=== PATIENT | male | born 1975 | race Caucasian/White ===

== ENCOUNTER 2019-03-10 15:51 | Emergency (ER) | payer BC ==
[2019-03-10 17:01] VITALS: BP 129/83
[2019-03-10] MEDS ORDERED: DOXYCYCLINE HYCLATE 100 MG TABLET PO ONE (18:40)
[2019-03-10] MEDS ORDERED: DIPH/PERTUSS(ACELL)/TETANUS VAC/PF 0.5 ML SYR (>=10YO) IM ONE (18:41)
--- NOTE | 2019-03-10 19:24 | ER Document Report ---
HPI - HPI Patient complains to provider of: Right hand injury Time Seen by Provider: 03/10/19 18:06 Pain Level: 4 Context: Patient is a 43-year-old male presents the emergency department for a puncture wound to his right hand. Patient states he was cleaning his boat when he accidentally slid his hand and sustained a puncture wound between his right palm and index finger into the web of his hand. Patient states the metal piece was approximately 2 inches. States he does not feel as though the entire thing punctured him. Patient states this is a salt water but he was cleaning. Patient states he is unsure when his last tetanus immunization. Patient states history of hypertension, hyperlipidemia Patient states he takes losartan Denying any allergies - CONSTITUTIONAL Constitutional: DENIES: Fever, Chills - MUSCULOSKELETAL Musculoskeletal: REPORTS: Extremity pain - R hand Past Medical History - General Information source: Patient - Social History Smoking Status: Unknown if Ever Smoked Family History: Reviewed & Not Pertinent Patient has suicidal ideation: No Patient has homicidal ideation: No Renal/ Medical History: Denies: Hx Peritoneal Dialysis Vertical Provider Document - CONSTITUTIONAL Agree With Documented VS: Yes Notes: GENERAL: Alert, interacts well. No acute distress. HEAD: Normocephalic, atraumatic. EYES: Pupils equal, round, and reactive to light. Extraocular movements intact. ENT: Oral mucosa moist, tongue midline. NECK: Full range of motion. Supple. Trachea midline. LUNGS: Clear to auscultation bilaterally, no wheezes, rales, or rhonchi. No respiratory distress. HEART: Regular rate and rhythm. No murmur ABDOMEN: Soft, non-tender. Non-distended. Bowel sounds present in all 4 quadrants. EXTREMITIES: Moves all 4 extremities spontaneously. No edema, normal radial and dorsalis pedis pulses bilaterally. No cyanosis. BACK: no cervical, thoracic, lumbar midline tenderness. No saddle anesthesia, normal distal neurovascular exam. NEUROLOGICAL: Alert and oriented x3. Normal speech. cranial nerves II through XII grossly intact PSYCH: Normal affect, normal mood. SKIN: Warm, dry, normal turgor. 1 cm laceration and puncture wound noted in between the web of patient's right index finger and thumb. - INFECTION CONTROL TRAVEL OUTSIDE OF THE [place] IN LAST 30 DAYS: No Course - Re-evaluation Re-evalutation: 07/15/19 19:43 Hand X-Ray 03/10/19 18:40 IMPRESSION: NO FRACTURE.No radiopaque foreign body. Patient's right hand was soaked in Betadine. And then washed thoroughly with Shur-Clens. Discussed with patient higher risk of infection due to it being a puncture and also potentially exposed to salt water. Discussed use of doxycycline continued wound care with delayed closure. At this time will discharge with return precautions and follow-up recommendations. Verbal discharge instructions given a the bedside and opportunity for questions given. Medication warnings reviewed. Patient is in agreement with this plan and has verbalized understanding of return precautions and the need for primary care follow-up in the next 24-72 hours. This medical record was dictated with voice recognizing software. There may be grammatical, syntax errors that are unintended. - Vital Signs Vital signs: Temp Pulse Resp BP Pulse Ox 98.0 F 77 20 129/83 H 96 03/10/19 16:59 03/10/19 16:59 03/10/19 16:59 03/10/19 16:59 03/10/19 16:59 Discharge - Discharge Clinical Impression: Puncture wound Condition: Stable Disposition: HOME, SELF-CARE Instructions: Puncture Wound ([facility]) Additional Instructions: As we discussed you have been seen and treated in the emergency department for an injury to your right hand. Based on the fact that this injury occurred wit potential exposure to salt water I am starting you on an antibiotic called doxycycline. Please make sure you take it as prescribed.h please also make sure you take [id number] Tylenol and Motrin for generalized pain. Please make sure you clean the wound at least 3 times a day with a normal soap and water. Please also make sure you keep the wound covered so nothing gets inside of the wound. Please follow-up with your primary care provider in the next 24 to 48 hours. Please return to the emergency room for any further concerns. Prescriptions: Doxycycline Hyclate 100 mg PO BID #14 capsule Forms: Return to Work
--- NOTE | 2019-03-10 19:40 | RADIOLOGY REPORT (SQ) ---
EXAM DESCRIPTION: HAND RIGHT 3 VIEWS COMPLETED DATE/TIME: 03/10/2019 7:12 pm REASON FOR STUDY: puncture wound COMPARISON: None. EXAM PARAMETERS: NUMBER OF VIEWS: Three views. TECHNIQUE: AP, lateral and oblique radiographic images acquired of the right hand. LIMITATIONS: None. FINDINGS: MINERALIZATION: Normal. BONES: No acute fracture or dislocation. Old healed fracture of the 5th metacarpal with dorsal-later al bony excrescence at the carpometacarpal joint space. . JOINTS: No effusion. SOFT TISSUES: No significant soft tissue swelling. No radiopaque foreign body. OTHER: No other significant finding. IMPRESSION: NO FRACTURE.No radiopaque foreign body. TECHNICAL DOCUMENTATION: JOB ID: [id number] [place]-[id number] 2010 [employer]- All Rights Reserved Reading location - IP/workstation name: [email or web address]
== END 2019-03-10 20:15 | disposition home or self-care (01) ==
LOC: ER 15:51
DX: S61.431A Puncture wound without foreign body of right hand, initial encounter (principal); W22.8XXA Striking against or struck by other objects, initial encounter; I10 Essential (primary) hypertension; E78.5 Hyperlipidemia, unspecified; Z23 Encounter for immunization
CPT/HCPCS: 90471; 90715; 99283